=== PATIENT | female | born 1950 | race Caucasian/White ===

== ENCOUNTER 2023-04-14 15:35 | Outpatient (CLI) | payer MEDICARE, BC, SELFPAY | END 2023-04-14 15:36 | disposition home or self-care (01) | LOC: AMB 05-04 10:45 | PROVIDERS: Visit Provider Family Medicine | DX: E87.1 Hypo-osmolality and hyponatremia (principal); I95.9 Hypotension, unspecified; R19.7 Diarrhea, unspecified | CPT/HCPCS: A0425; A0434 ==